=== PATIENT | male | born 1990 | race Caucasian/White ===

== ENCOUNTER 2021-01-14 21:21 | Outpatient (REF) | payer MEDICAID, SELFPAY ==
[2021-01-16 11:35] LABS: COVID-19 RT-PCR UVMMC Result Negative (Negative)
== END 2021-01-14 21:22 | disposition home or self-care (01) ==
LOC: NCHCN 21:21
PROVIDERS: Visit Provider Nurse Practitioner Family
DX: Z20.822 Contact with and (suspected) exposure to COVID-19 (principal)
CPT/HCPCS: U0003